=== PATIENT | male | born 1945 | race Hispanic/Latino ===

== ENCOUNTER → 2020-06-07 | Outpatient (CLI) | payer OTHER, MEDICARE | END | disposition home or self-care (01) | LOC: SHCH 11:30 | PROVIDERS: ATTEND Internal Medicine Cardiovascular Disease | DX: I50.42 Chronic combined systolic (congestive) and diastolic (congestive) heart failure (principal) | CPT/HCPCS: 93306; 93356 ==

== ENCOUNTER 2022-01-30 06:51 | Day surgery (SDC) | payer OTHER, MEDICARE ==
[2022-01-28 16:30] LABS: BASOPHILS % (AUTO) 0.5 % (0.0-5.0); EOSINOPHILS % (AUTO) 1.8 % (0.0-8.0); HEMATOCRIT 42.6 % (42-54); LYMPHOCYTES % (AUTO) 25.2 % (21.0-51.0); MEAN CORPUSCULAR HEMOGLOBIN 30.2 pg (27.0-33.0); MEAN CORPUSCULAR HGB CONC 33.6 g/dL (32.0-36.0); MEAN CORPUSCULAR VOLUME 89.9 fL (79-99); MONOCYTES % (AUTO) 7.3 % (3.0-13.0); NEUTROPHILS % (AUTO) 64.8 % (40.0-77.0); PLATELET COUNT (AUTO) 227 K/uL (130-400); RED BLOOD CELL COUNT(AUTO) 4.74 MIL/uL (4.50-6.20); RED CELL DISTRIBUTION WIDTH 12.8 % (11.0-15.5)
[2022-01-28 16:41] LABS: INR 1.04 (0.85-1.15); PROTHROMBIN TIME 11.3 SEC (9.6-11.6)
[2022-01-28 16:42] LABS: PARTIAL THROMBOPLASTIN TIME 33.3 SEC (26.3-35.5)
[2022-01-28 16:45] LABS: CREATININE 1.3 mg/dL (0.5-1.5); POTASSIUM 5.3 mmol/L (3.5-5.1)
[2022-01-29 09:10] VITALS: BP 152/76
[~2022-01-30] VITALS: Ht 162.6 cm; Wt 65.3 kg
[~2022-01-30 06:51] MED LIST: 0.9%NACL 1000ML 1,000 ML IV SCH; AEC81 PO; ATOR40TA69 PO; EMPA10TA PO; GLIP2.5T17 PO; HYDR12.54 PO; METF-446 PO; METO100T14 PO; SACU1TAB7 PO; SITA100T12 PO
[2022-01-30 07:15] VITALS: BP 146/72
[2022-01-30 07:32] LABS: CREATININE 1.4 mg/dL (0.5-1.5); POTASSIUM 4.5 mmol/L (3.5-5.1)
[2022-01-30] MEDS ORDERED: LIDOCAINE HCL 2% VISCOUS 15 ML UDCUP ONE (08:02)
[2022-01-30] MEDS ORDERED: FENTANYL CITRATE PF 50 MCG/1 ML 2ML VIAL ONE (08:03)
[2022-01-30] MEDS ORDERED: NALOXONE HCL 0.4 MG/1 ML ML ONE (08:03)
[2022-01-30] MEDS ORDERED: FLUMAZENIL 0.1MG/1ML 5ML VIAL IV ONE (08:03)
[2022-01-30] MEDS ORDERED: MIDAZOLAM HCL 1 MG/ML 2ML VIAL ONE (08:04)
== END 2022-01-30 11:15 | disposition home or self-care (01) ==
LOC: DAH 06:51
PROVIDERS: ATTEND Internal Medicine Cardiovascular Disease
DX: I48.91 Unspecified atrial fibrillation (principal); I37.1 Nonrheumatic pulmonary valve insufficiency; I25.5 Ischemic cardiomyopathy; I25.2 Old myocardial infarction; I11.0 Hypertensive heart disease with heart failure; I50.42 Chronic combined systolic (congestive) and diastolic (congestive) heart failure; E11.51 Type 2 diabetes mellitus with diabetic peripheral angiopathy without gangrene; E55.9 Vitamin D deficiency, unspecified; E78.5 Hyperlipidemia, unspecified; Z79.01 Long term (current) use of anticoagulants; Z79.82 Long term (current) use of aspirin; Z79.84 Long term (current) use of oral hypoglycemic drugs; Z79.899 Other long term (current) drug therapy; Z98.890 Other specified postprocedural states; Z86.73 Personal history of transient ischemic attack (TIA), and cerebral infarction without residual deficits; Z98.49 Cataract extraction status, unspecified eye; Z90.49 Acquired absence of other specified parts of digestive tract; Z82.49 Family history of ischemic heart disease and other diseases of the circulatory system
CPT/HCPCS: 80048 ×2; 85025; 85610; 85730; 36415 ×2; 93005; 82948; 93325; 93312; A4223 ×3; J3010; J7030; J2250; A4615; A4215; A4657; A7002; A4222; A4221; A4663; A4216; A4606; 96365; 99152; J2310; J3490

== ENCOUNTER → 2022-12-03 | Outpatient (CLI) | payer OTHER, MEDICARE ==
[~2022-12-03] MED LIST changes: -0.9%NACL 1000ML 1,000 ML IV SCH
[2022-12-03 12:22] LABS: BASOPHILS # (AUTO) 0.05 K/uL (0.00-0.20); BASOPHILS % (AUTO) 0.8 % (0.0-5.0); EOSINOPHILS # (AUTO) 0.14 K/uL (0.00-0.70); EOSINOPHILS % (AUTO) 2.2 % (0.0-8.0); HEMATOCRIT 42.4 % (42-54); IMMATURE GRANULOCYTE ABSOLUTE 0.02 K/uL (0-1); LYMPHOCYTES # (AUTO) 2.5 K/uL (1.0-4.8); LYMPHOCYTES % (AUTO) 39.6 % (21.0-51.0); MEAN CORPUSCULAR HEMOGLOBIN 29.6 pg (27.0-33.0); MEAN CORPUSCULAR HGB CONC 32.5 g/dL (32.0-36.0); MONOCYTES # (AUTO) 0.5 K/uL (0.1-1.0); NEUTROPHILS # (AUTO) 3.1 K/uL (1.8-7.7); NEUTROPHILS % (AUTO) 49.1 % (40.0-77.0); PLATELET COUNT (AUTO) 211 K/uL (130-400); RED BLOOD CELL COUNT(AUTO) 4.66 MIL/uL (4.50-6.20); RED CELL DISTRIBUTION WIDTH 13.8 % (11.0-15.5); WHITE BLOOD COUNT (AUTO) 6.3 K/uL (4.8-10.8)
[2022-12-03 12:40] LABS: ALBUMIN 3.7 g/dL (3.5-5.0); BILIRUBIN,TOTAL 2.1 mg/dL (0.2-1.0); CREATININE 1.5 mg/dL (0.5-1.5); POTASSIUM 4.1 mmol/L (3.5-5.1); TOTAL PROTEIN, SERUM 7.1 g/dL (6.0-8.3)
== END | disposition home or self-care (01) ==
LOC: LAB 08:29
PROVIDERS: ATTEND Internal Medicine Cardiovascular Disease
DX: I11.0 Hypertensive heart disease with heart failure (principal); I50.22 Chronic systolic (congestive) heart failure; I73.9 Peripheral vascular disease, unspecified
CPT/HCPCS: 36415; 80053; 80061; 85025

== ENCOUNTER 2022-12-28 05:57 | Day surgery (SDC) | payer OTHER, MEDICARE ==
[2022-12-25 15:42] LABS: BASOPHILS # (AUTO) 0.06 K/uL (0.00-0.20); BASOPHILS % (AUTO) 0.8 % (0.0-5.0); EOSINOPHILS # (AUTO) 0.16 K/uL (0.00-0.70); EOSINOPHILS % (AUTO) 2.2 % (0.0-8.0); HEMATOCRIT 42.4 % (42-54); IMMATURE GRANULOCYTE ABSOLUTE 0.02 K/uL (0-1); MEAN CORPUSCULAR HGB CONC 32.8 g/dL (32.0-36.0); MEAN CORPUSCULAR VOLUME 91.6 fL (79-99); MONOCYTES # (AUTO) 0.5 K/uL (0.1-1.0); MONOCYTES % (AUTO) 6.8 % (3.0-13.0); NEUTROPHILS # (AUTO) 4.7 K/uL (1.8-7.7); NEUTROPHILS % (AUTO) 62.9 % (40.0-77.0); PLATELET COUNT (AUTO) 200 K/uL (130-400); RED BLOOD CELL COUNT(AUTO) 4.63 MIL/uL (4.50-6.20); RED CELL DISTRIBUTION WIDTH 13.6 % (11.0-15.5); WHITE BLOOD COUNT (AUTO) 7.4 K/uL (4.8-10.8)
[2022-12-25 15:58] LABS: INR 0.98 (0.85-1.15); PROTHROMBIN TIME 11.4 SEC (9.6-11.6)
[2022-12-25 15:59] LABS: PARTIAL THROMBOPLASTIN TIME 30.7 SEC (26.3-35.5)
[2022-12-25 16:07] VITALS: BP 128/71; PULSE 56; RESP 18
[2022-12-25 16:16] LABS: POTASSIUM 4.6 mmol/L (3.5-5.1)
[2022-12-25 17:08] LABS: CREATININE 1.4 mg/dL (0.5-1.5)
[~2022-12-28] VITALS: Ht 165.1 cm; Wt 63.5 kg
[2022-12-28] VITALS (8 sets, daily range): BP systolic 107–141; BP diastolic 64–77; PULSE 60–68; RESP 14–21
[~2022-12-28 05:57] MED LIST changes: +ERGO500093 PO; +LEVO75CA5 PO; +METF-444 PO; -METF-446 PO; +SACU1TAB4 PO; -SACU1TAB7 PO
[2022-12-28] MEDS ORDERED: 0.9%NACL 1000ML 1,000 ML IV ONE (06:25)
[2022-12-28] MEDS ORDERED: CEFAZOLIN SODIUM 1 GM VIAL ONE (07:29)
[2022-12-28] MEDS ORDERED: MEPERIDINE-PF 25 MG/ML SYG ONE (07:29)
[2022-12-28] MEDS ORDERED: LIDOCAINE HCL 1% MDV 50ML VIAL ONE (07:29)
[2022-12-28] MEDS ORDERED: BUPIVACAINE/PF 0.25% 30ML VIAL IJ ONE (07:30)
[2022-12-28] MEDS ORDERED: MIDAZOLAM HCL 1 MG/ML 2ML VIAL ONE (07:30)
[2022-12-28] MEDS ORDERED: BACITRACIN 1 EACH PACKET TP ONE (08:38)
[2022-12-28] MEDS ORDERED: ACETAMINOPHEN 500 MG TABLET PO PRN (09:00)
[2022-12-28] MEDS ORDERED: ACETAMINOPHEN WITH CODEINE 1 TAB TAB PO PRN (09:00)
[2022-12-28] MEDS ORDERED: TRAM50TA4 PO (09:02)
== END 2022-12-28 12:10 | disposition home or self-care (01) ==
LOC: DAH 05:57
PROVIDERS: ATTEND Internal Medicine Cardiovascular Disease
DX: Z45.02 Encounter for adjustment and management of automatic implantable cardiac defibrillator (principal); I25.5 Ischemic cardiomyopathy; I49.5 Sick sinus syndrome; I11.0 Hypertensive heart disease with heart failure; I50.42 Chronic combined systolic (congestive) and diastolic (congestive) heart failure; I25.10 Atherosclerotic heart disease of native coronary artery without angina pectoris; I25.2 Old myocardial infarction; E78.5 Hyperlipidemia, unspecified; E11.51 Type 2 diabetes mellitus with diabetic peripheral angiopathy without gangrene; E11.59 Type 2 diabetes mellitus with other circulatory complications; Z79.01 Long term (current) use of anticoagulants; Z79.899 Other long term (current) drug therapy; Z98.890 Other specified postprocedural states; Z86.73 Personal history of transient ischemic attack (TIA), and cerebral infarction without residual deficits; Z79.84 Long term (current) use of oral hypoglycemic drugs; Z79.890 Hormone replacement therapy; Z79.82 Long term (current) use of aspirin; Z90.49 Acquired absence of other specified parts of digestive tract; Z98.49 Cataract extraction status, unspecified eye; Z82.49 Family history of ischemic heart disease and other diseases of the circulatory system
CPT/HCPCS: 80048; 85025; 85610; 85730; 36415; 93005; 33263; 82948 ×2; C1721; J0690; J7030; J3490 ×2; J2250; J2175; A4215; A6251; A4222; A4221; A4663; A4216; A6258; A4606; A4223 ×3; 99156; 99157

== ENCOUNTER → 2023-03-02 | Outpatient (CLI) | payer OTHER, MEDICARE ==
[~2023-03-02] MED LIST changes: +TRAM50TA4 PO
[2023-03-02 12:15] LABS: BASOPHILS # (AUTO) 0.04 K/uL (0.00-0.20); BASOPHILS % (AUTO) 0.6 % (0.0-5.0); EOSINOPHILS # (AUTO) 0.16 K/uL (0.00-0.70); EOSINOPHILS % (AUTO) 2.5 % (0.0-8.0); IMMATURE GRANULOCYTE ABSOLUTE 0.03 K/uL (0-1); LYMPHOCYTES # (AUTO) 2.4 K/uL (1.0-4.8); LYMPHOCYTES % (AUTO) 38.1 % (21.0-51.0); MEAN CORPUSCULAR HEMOGLOBIN 29.9 pg (27.0-33.0); MEAN CORPUSCULAR HGB CONC 32.5 g/dL (32.0-36.0); MEAN CORPUSCULAR VOLUME 91.9 fL (79-99); MONOCYTES # (AUTO) 0.5 K/uL (0.1-1.0); NEUTROPHILS # (AUTO) 3.2 K/uL (1.8-7.7); NEUTROPHILS % (AUTO) 50.3 % (40.0-77.0); PLATELET COUNT (AUTO) 205 K/uL (130-400); RED BLOOD CELL COUNT(AUTO) 4.79 MIL/uL (4.50-6.20); RED CELL DISTRIBUTION WIDTH 12.8 % (11.0-15.5); WHITE BLOOD COUNT (AUTO) 6.4 K/uL (4.8-10.8)
[2023-03-02 12:31] LABS: ALBUMIN 3.8 g/dL (3.5-5.0); BILIRUBIN,TOTAL 1.4 mg/dL (0.2-1.0); CREATININE 1.4 mg/dL (0.5-1.5); POTASSIUM 4.5 mmol/L (3.5-5.1); TOTAL PROTEIN, SERUM 7.4 g/dL (6.0-8.3)
== END | disposition home or self-care (01) ==
LOC: LAB 08:57
PROVIDERS: ATTEND Internal Medicine Cardiovascular Disease
DX: I73.9 Peripheral vascular disease, unspecified (principal); E11.9 Type 2 diabetes mellitus without complications; I25.2 Old myocardial infarction
CPT/HCPCS: 36415; 80053; 80061; 85025

== ENCOUNTER → 2023-05-19 | Outpatient (CLI) | payer OTHER, MEDICARE ==
[2023-05-19 12:53] LABS: CREATININE 1.4 mg/dL (0.5-1.5); MAGNESIUM 1.6 mg/dL (1.80-2.40); POTASSIUM 4.6 mmol/L (3.5-5.1)
== END | disposition home or self-care (01) ==
LOC: LAB 08:52
PROVIDERS: ATTEND Internal Medicine Cardiovascular Disease
DX: I50.42 Chronic combined systolic (congestive) and diastolic (congestive) heart failure (principal); Z95.810 Presence of automatic (implantable) cardiac defibrillator
CPT/HCPCS: 36415; 80048; 83735; 83880

== ENCOUNTER → 2023-07-13 | Outpatient (CLI) | payer OTHER, MEDICARE ==
[2023-07-13 12:10] LABS: BASOPHILS # (AUTO) 0.04 K/uL (0.00-0.20); BASOPHILS % (AUTO) 0.7 % (0.0-5.0); EOSINOPHILS # (AUTO) 0.19 K/uL (0.00-0.70); EOSINOPHILS % (AUTO) 3.4 % (0.0-8.0); HEMATOCRIT 41.7 % (42-54); IMMATURE GRANULOCYTE ABSOLUTE 0.01 K/uL (0-1); LYMPHOCYTES # (AUTO) 1.9 K/uL (1.0-4.8); MEAN CORPUSCULAR HEMOGLOBIN 29.7 pg (27.0-33.0); MEAN CORPUSCULAR HGB CONC 33.1 g/dL (32.0-36.0); MEAN CORPUSCULAR VOLUME 89.7 fL (79-99); MONOCYTES # (AUTO) 0.4 K/uL (0.1-1.0); MONOCYTES % (AUTO) 7.8 % (3.0-13.0); NEUTROPHILS # (AUTO) 3.1 K/uL (1.8-7.7); NEUTROPHILS % (AUTO) 53.9 % (40.0-77.0); PLATELET COUNT (AUTO) 210 K/uL (130-400); RED BLOOD CELL COUNT(AUTO) 4.65 MIL/uL (4.50-6.20); RED CELL DISTRIBUTION WIDTH 13.3 % (11.0-15.5); WHITE BLOOD COUNT (AUTO) 5.7 K/uL (4.8-10.8)
== END | disposition home or self-care (01) ==
LOC: LAB 09:12
PROVIDERS: ATTEND Internal Medicine Cardiovascular Disease
DX: I13.0 Hypertensive heart and chronic kidney disease with heart failure and stage 1 through stage 4 chronic kidney disease, or unspecified chronic kidney disease (principal); I50.22 Chronic systolic (congestive) heart failure; N18.9 Chronic kidney disease, unspecified; I25.810 Atherosclerosis of coronary artery bypass graft(s) without angina pectoris; I51.3 Intracardiac thrombosis, not elsewhere classified; E78.5 Hyperlipidemia, unspecified; Z79.899 Other long term (current) drug therapy
CPT/HCPCS: 36415; 82306; 85025

== ENCOUNTER → 2023-08-10 | Outpatient (CLI) | payer OTHER, MEDICARE ==
[2023-08-10 12:21] LABS: CREATININE 1.5 mg/dL (0.5-1.3); POTASSIUM 4.8 mmol/L (3.5-5.1)
== END | disposition home or self-care (01) ==
LOC: LAB 08:39
PROVIDERS: ATTEND Internal Medicine Cardiovascular Disease
DX: I50.22 Chronic systolic (congestive) heart failure (principal); I25.2 Old myocardial infarction
CPT/HCPCS: 36415; 80048; 83880

== ENCOUNTER → 2023-11-24 | Outpatient (CLI) | payer OTHER, MEDICARE ==
[2023-11-24 12:23] LABS: BASOPHILS # (AUTO) 0.05 K/uL (0.00-0.20); BASOPHILS % (AUTO) 0.6 % (0.0-5.0); EOSINOPHILS # (AUTO) 0.16 K/uL (0.00-0.70); EOSINOPHILS % (AUTO) 1.9 % (0.0-8.0); IMMATURE GRANULOCYTE ABSOLUTE 0.03 K/uL (0-1); LYMPHOCYTES # (AUTO) 2.5 K/uL (1.0-4.8); LYMPHOCYTES % (AUTO) 29.6 % (21.0-51.0); MEAN CORPUSCULAR HEMOGLOBIN 30.6 pg (27.0-33.0); MEAN CORPUSCULAR HGB CONC 33.2 g/dL (32.0-36.0); MEAN CORPUSCULAR VOLUME 92.2 fL (79-99); MONOCYTES # (AUTO) 0.6 K/uL (0.1-1.0); MONOCYTES % (AUTO) 7.5 % (3.0-13.0); NEUTROPHILS # (AUTO) 5.1 K/uL (1.8-7.7); PLATELET COUNT (AUTO) 331 K/uL (130-400); RED BLOOD CELL COUNT(AUTO) 4.77 MIL/uL (4.50-6.20); RED CELL DISTRIBUTION WIDTH 13.5 % (11.0-15.5); WHITE BLOOD COUNT (AUTO) 8.5 K/uL (4.8-10.8)
[2023-11-24 12:41] LABS: BILIRUBIN,TOTAL 1.4 mg/dL (0.2-1.0); CREATININE 1.6 mg/dL (0.5-1.3); POTASSIUM 4.6 mmol/L (3.5-5.1); TOTAL PROTEIN, SERUM 7.9 g/dL (6.0-8.3)
== END | disposition home or self-care (01) ==
LOC: LAB 08:14
PROVIDERS: ATTEND Internal Medicine Cardiovascular Disease
DX: I50.22 Chronic systolic (congestive) heart failure (principal); I73.9 Peripheral vascular disease, unspecified
CPT/HCPCS: 36415; 80053; 80061; 85025

== ENCOUNTER → 2024-03-30 | Outpatient (CLI) | payer OTHER, MEDICARE ==
[2024-03-30 12:12] LABS: BASOPHILS # (AUTO) 0.04 K/uL (0.00-0.20); BASOPHILS % (AUTO) 0.6 % (0.0-5.0); EOSINOPHILS # (AUTO) 0.18 K/uL (0.00-0.70); EOSINOPHILS % (AUTO) 2.6 % (0.0-8.0); IMMATURE GRANULOCYTE ABSOLUTE 0.03 K/uL (0-1); LYMPHOCYTES % (AUTO) 29.7 % (21.0-51.0); MEAN CORPUSCULAR HEMOGLOBIN 30.8 pg (27.0-33.0); MEAN CORPUSCULAR HGB CONC 32.8 g/dL (32.0-36.0); MEAN CORPUSCULAR VOLUME 93.9 fL (79-99); MONOCYTES # (AUTO) 0.5 K/uL (0.1-1.0); MONOCYTES % (AUTO) 6.6 % (3.0-13.0); NEUTROPHILS # (AUTO) 4.1 K/uL (1.8-7.7); NEUTROPHILS % (AUTO) 60.1 % (40.0-77.0); PLATELET COUNT (AUTO) 185 K/uL (130-400); RED BLOOD CELL COUNT(AUTO) 4.58 MIL/uL (4.50-6.20); RED CELL DISTRIBUTION WIDTH 13.4 % (11.0-15.5); WHITE BLOOD COUNT (AUTO) 6.8 K/uL (4.8-10.8)
[2024-03-30 12:23] LABS: ALBUMIN 3.8 g/dL (3.5-5.0); BILIRUBIN,TOTAL 0.8 mg/dL (0.2-1.0); CREATININE 1.8 mg/dL (0.5-1.3); POTASSIUM 5.9 mmol/L (3.5-5.1); TOTAL PROTEIN, SERUM 7.1 g/dL (6.0-8.3)
== END | disposition home or self-care (01) ==
LOC: LAB 08:44
PROVIDERS: ATTEND Internal Medicine Cardiovascular Disease
DX: I50.22 Chronic systolic (congestive) heart failure (principal); I73.9 Peripheral vascular disease, unspecified
CPT/HCPCS: 36415; 80053; 80061; 85025

== ENCOUNTER → 2024-05-13 | Outpatient (CLI) | payer OTHER, MEDICARE ==
[~2024-05-13] MED LIST changes: +SACU1TAB PO; -SACU1TAB4 PO
== END | disposition home or self-care (01) ==
LOC: SHCH 10:46
PROVIDERS: ATTEND Internal Medicine Cardiovascular Disease
DX: I25.2 Old myocardial infarction (principal); I50.42 Chronic combined systolic (congestive) and diastolic (congestive) heart failure
CPT/HCPCS: 93306

== ENCOUNTER 2024-12-07 07:52 | Day surgery (SDC) | payer OTHER, MEDICARE ==
[~2024-12-07] VITALS: Ht 162.6 cm; Wt 61.2 kg
[2024-12-07] VITALS (12 sets, daily range): BP systolic 110–147; BP diastolic 64–91; PULSE 35–76; RESP 15–18; TEMP 97.1–97.8
[~2024-12-07 07:52] MED LIST changes: -HYDR12.54 PO; -LEVO75CA5 PO; +LEVO88TA7 PO; -SACU1TAB PO; +SACU1TAB4 PO; -TRAM50TA4 PO
[2024-12-07] MEDS: 0.9%NACL 1000ML 1,000 ML IV ONE (10:18)
[2024-12-07] MEDS ORDERED: LIDOCAINE HCL 1% 20 ML VIAL ONE (12:25)
--- NOTE | 2024-12-07 13:54 | NUR ---
BOTH PT AND SPOUSE GIVEN VERBAL AND WRITTEN DISCHARGE INSTRUCTIONS. IV REMOVED SITE ASYMPTOMATIC. PT TAKEN OUT VIA WHEELCHAIR DAUGHTER DRIVING
== END 2024-12-07 13:55 | disposition home or self-care (01) ==
LOC: DAH 07:52
PROVIDERS: ATTEND Internal Medicine
DX: D50.9 Iron deficiency anemia, unspecified (principal); D12.0 Benign neoplasm of cecum; K29.50 Unspecified chronic gastritis without bleeding; K63.5 Polyp of colon; K26.9 Duodenal ulcer, unspecified as acute or chronic, without hemorrhage or perforation; I25.10 Atherosclerotic heart disease of native coronary artery without angina pectoris; I11.0 Hypertensive heart disease with heart failure; I50.22 Chronic systolic (congestive) heart failure; E78.5 Hyperlipidemia, unspecified; E11.9 Type 2 diabetes mellitus without complications; Z86.73 Personal history of transient ischemic attack (TIA), and cerebral infarction without residual deficits; Z80.0 Family history of malignant neoplasm of digestive organs; Z79.899 Other long term (current) drug therapy
CPT/HCPCS: 82948 ×2; 43239; 45380; 45385; J7030 ×2; J2704; A4620; A4657; A7002; J3490

== ENCOUNTER 2025-03-29 10:06 | Observation (INO) | payer OTHER, MEDICARE ==
[~2025-03-29] VITALS: Ht 162.6 cm; Wt 60.4 kg
--- NOTE | 2025-03-29 10:47 | ERN ---
ED Note History of Present Illness Stated Complaint: PAIN TO NEHA LEG AND HIP PAIN Chief Complaint: Hip Pain/Injury Time Seen by MD: 10:16 Time Seen by Midlevel: 10:20 Dictation: 79-YEAR-OLD MALE WITH A HISTORY OF CHOLESTEROL AND HYPERTENSION COMING IN FOR RIGHT HIP PAIN AND RIGHT LEG PAIN ONSET WEDNESDAY. PATIENT STATES HE SUFFERED A GROUND LEVEL FALL AT NIGHT WHEN HE TRIPPED OVER AN OBJECT. DENIES STRIKING IN HIS HEAD. DENIES ANY BLOOD THINNERS, NO LOC. Allergies: Coded Allergies: No Known Drug Allergies (Verified Allergy, Unknown, 01/29/22) Home Meds Reported Medications Sacubitril/Valsartan (Entresto 97 mg-103 mg Tablet) 97 Mg-103 Mg Tablet, 1 EACH PO BID, TAB 12/06/24 Levothyroxine Sodium (Levothyroxine Sodium) 88 Mcg Tablet, 88 MCG PO ACBKFST, TAB 12/06/24 Ergocalciferol (Vitamin D2) (Vitamin D2) 1,250 Mcg Capsule, 1250 MCG PO MONTHLY, CAP 12/25/22 Metformin HCl (Metformin HCl) 500 Mg Tablet, 5000 MG PO BID, TAB 12/25/22 Aspirin (ASPIRIN 81 MG ECTAB) 81 Mg Ectab, 81 MG PO HS, TAB.EC 01/29/22 Atorvastatin Calcium (LIPITOR) 40 Mg Tablet, 40 MG PO HS, TAB 01/29/22 Glipizide (Glipizide Xl) 2.5 Mg Tab.er.24, 2.5 MG PO HS 01/29/22 Metoprolol Tartrate (Metoprolol Tartrate) 100 Mg Tablet, 100 MG PO BID, TAB 01/29/22 Empagliflozin (Jardiance) 10 Mg Tablet, 10 MG PO DAILY, TAB 01/29/22 Sitagliptin Phosphate (Januvia) 100 Mg Tablet, 100 MG PO DAILY, TAB 01/29/22 Past Medical History Past Medical History: CVA, Diabetes-Type II, High Cholesterol, Hypertension, CT Surgical History: Pacer/AICD Review of System Dictation Constitutional: Negative for fever,chills, and weight loss Eyes: Negative for injury, pain,redness, and discharge ENT: Negative for injury,pain or swelling Cardiovascular: Negative for chest pain, palpitations, and edema Respiratory: Negative for shortness of breath, cough, and wheezing, Abdomen/GI: Negative for abdominal pain, nausea, vomiting, diarrhea, and constipation Back: Negative for injury and pain : Negative for injury, bleeding and discharge MS/Extremity: Negative for injury and deformity, right hip pain Skin: Negative for rash, and discoloration Neuro: Negative for headache, weakness, numbness, tingling, and seizure Psych: Negative for suicide ideation, homicidal ideation, and hallucinations Review of Systems: was completed Initial Vital Sign VS Vital Signs Date Time Temp Pulse Resp B/P (MAP) Pulse Ox O2 Delivery O2 Flow Rate FiO2 03/29/25 10:07 97.5 83 18 148/86 98 Room Air 03/29/25 10:23 0 21 Physical Exam Dictation General: awake, alert, NAD Head/Face: Normocephalic, atraumatic Eyes: PERRL, EOMI, vision at baseline ENT: oral cavity clear, TMs clear, no signs of infection Neck: Trachea midline, supple, no nuchal rigidity Cardiovascular: RRR, normal S1/S2, No MRGs, no JVD Respiratory: CTAB, no respiratory distress, No rales or wheezes Abdomen: Soft, non-tender, non-distended, normal bowel sounds, no guarding or rebound. Skin: Warm, dry, normal turgor, no rash MS/Extremity: Pulses equal, no cyanosis, neurovascular intact, FROM, pain on palpation to the right hip area Neuro: COAx4, GCS 15, strength 5/5, CN 2-12 intact, normal cerebellar exam, normal gait, Psych: Normal behavior, mood, and affect normal Results (Laboratory/Radiology) Laboratory/Radiology Laboratory Tests Test 03/29/25 13:21 03/29/25 15:00 White Blood Count 8.7 K/uL (4.8-10.8) Red Blood Count 4.02 MIL/uL (4.50-6.20) L Hemoglobin 9.8 g/dL (14.0-18.0) L Hematocrit 31.5 % (42-54) L Mean Corpuscular Volume 78.4 fL (79-99) L Mean Corpuscular Hemoglobin 24.4 pg (27.0-33.0) L Mean Corpuscular Hemoglobin Concent 31.1 g/dL (32.0-36.0) L Red Cell Distribution Width 17.2 % (11.0-15.5) H Platelet Count 199 K/uL (130-400) Mean Platelet Volume 9.8 fL (7.5-10.5) Immature Granulocyte % (Auto) 0.3 % (0-1) Neutrophils (%) (Auto) 77.2 % (40.0-77.0) H Lymphocytes (%) (Auto) 12.8 % (21.0-51.0) L Monocytes (%) (Auto) 6.7 % (3.0-13.0) Eosinophils (%) (Auto) 2.4 % (0.0-8.0) Basophils (%) (Auto) 0.6 % (0.0-5.0) Neutrophils # (Auto) 6.7 K/uL (1.8-7.7) Lymphocytes # (Auto) 1.1 K/uL (1.0-4.8) Monocytes # (Auto) 0.6 K/uL (0.1-1.0) Eosinophils # (Auto) 0.21 K/uL (0.00-0.70) Basophils # (Auto) 0.05 K/uL (0.00-0.20) Absolute Immature Granulocyte (auto 0.03 K/uL (0-1) Nucleated Red Blood Cells 0.0 % (0.0-0.19) Red Blood Cell Morphology See comments Sodium Level 137 mmol/L (136-145) Potassium Level 4.4 mmol/L (3.5-5.1) Chloride Level 101 mmol/L (101-111) Carbon Dioxide Level 25 mmol/L (21-32) Blood Urea Nitrogen 30 mg/dL (7-18) H Creatinine 1.3 mg/dL (0.5-1.3) Glomerular Filtration Rate Calc 55 mL/min (>90) Random Glucose 157 mg/dL (70-105) H Total Calcium 9.0 mg/dL (8.5-10.1) Urine Color LIGHT-YELLOW (YELLOW) Urine Appearance CLEAR (CLEAR) Urine pH 5.0 (5.0-8.0) Urine Specific [place] 1.014 (1.001-1.031) Urine Protein NEGATIVE mg/dL (NEGATIVE) Urine Glucose (UA) >=1000 mg/dL (NEGATIVE) H Urine Ketones NEGATIVE mg/dL (NEGATIVE) Urine Occult Blood +- (TRACE) (NEGATIVE) H Urine Nitrate NEGATIVE (NEGATIVE) Urine Bilirubin NEGATIVE mg/dL (NEGATIVE) Urine Urobilinogen 0.2 mg/dL (0.2-1.0) Urine Leukocyte Esterase 25 Bon[place]/uL (NEGATIVE) H Urine RBC 2-5 /HPF (0-1) H Urine WBC 2-5 /HPF (0-1) H Urine Squamous Epithelial Cells RARE /HPF (0-2) Urine Bacteria None /HPF (None Seen) Labs Reviewed?: Yes X-RAY Comment: [facility] [facility] [address] [place] [address] IMAGING REPORT Signed PATIENT: JUAN CARLOS MILES MR#: [id number] : 1945 SEX: M AGE: 79 LOCATION: [facility] ORDER 43 STATUS: REG ER REPORT#: [id number] SERVICE 104 REASON: RIGHT HIP PAIN/FALL ORDERING PHYSICIAN: NAOMI MILLS CNP PROCEDURE: PELVIS - PELVIS 1-2VWS STUDY CR pelvis, 1 view. HISTORY Right hip pain following a fall. TECHNIQUE Single frontal radiograph of the pelvis. COMPARISON None provided. FINDINGS BONES No acute displaced fracture or aggressive osseous lesion is identified involving the pelvis or visualized proximal femora. However, there is a subtle cortical discontinuity at the left superior pubic ramus, suspicious for a nondisplaced hairline fracture. JOINTS No hip joint dislocation is seen. There is moderate degenerative osteoarthritis of the right hip joint and mild degenerative osteoarthritis of the left hip joint, with joint space narrowing and osteophytosis corresponding to side. SOFT TISSUES No focal soft tissue swelling, gas, or soft tissue mass is identified. IMPRESSION * Subtle cortical irregularity at the left superior pubic ramus suspicious for a nondisplaced hairline fracture; correlate with point tenderness. CT scan of the bony pelvis would be useful for more complete evaluation. 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 * No hip joint dislocation. /[place] DICTATED BY: LIZZY SMITH Jr., MD DATE: 03/29/25 1321 ELECTRONICALLY SIGNED BY: LIZZY SMITH Jr., MD [address] [place] [address] IMAGING REPORT Signed PATIENT: JUAN CARLOS MILES MR#: [id number] : 1945 SEX: M AGE: 79 LOCATION: [facility] ORDER [id number] STATUS: REG ER [facility] REPORT#: [id number] SERVICE 1043 REASON: RIGHT HIP PAIN/FALL ORDERING PHYSICIAN: NAOMI MILLS CNP PROCEDURE: FEM RT 2 - FEMUR 2VW RIGHT STUDY CR right femur, 4 views. HISTORY Right hip pain following a fall. TECHNIQUE Multiplanar radiographs of the right femur. COMPARISON None provided. FINDINGS BONES No acute fracture or aggressive osseous lesion is identified. There are moderate degenerative changes of the right hip and knee joints, with joint space narrowing and osteophyte formation compatible with osteoarthritis. JOINTS No hip or knee joint dislocation is seen. Alignment of the right femur, hip, and knee is maintained. SOFT TISSUES No focal soft tissue swelling or soft tissue mass is identified. Vascular calcifications are present along the thigh, compatible with peripheral vascular atherosclerotic change. IMPRESSION * No acute fracture or dislocation of the right femur. 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 * Vascular calcifications in the thigh consistent with peripheral vascular atherosclerosis. /[place] DICTATED BY: LIZZY SMITH Jr., MD DATE: 03/29/251315 ELECTRONICALLY SIGNED BY: LIZZY SMITH Jr., MD DATE: 03/29/[address] Scan Comment: [facility] [address] [place], [place] [address] IMAGING REPORT Signed PATIENT: JUAN CARLOS MILES MR#: [id number] : 1945 SEX: M AGE: 79 LOCATION: [facility] ORDER 1202 STATUS: REG ER REPORT#: [id number] SERVICE 1201 REASON: right hip pain ORDERING PHYSICIAN: NAOMI MILLS CNP PROCEDURE: PELVIS WO - CT PELVIS W/O CONTRAST EXAM: CT Pelvis without IV contrast CLINICAL HISTORY: Right hip pain TECHNIQUE: Axial computed tomography images of the pelvis without intravenous contrast. CONTRAST: Without intravenous contrast. COMPARISON: None provided. FINDINGS: BOWEL LOOPS AND APPENDIX: Appendix could not be definitively identified. Few diverticula noted in the visualized colonic loops. PERITONEUM: No free fluid. No free air. Diffuse fat stranding seen in the right iliac fossa and pelvis. LYMPH NODES: No lymphadenopathy is evident. REPRODUCTIVE: Prostate is enlarged with a few small calcifications. VASCULATURE: Atherosclerotic changes in the visualized extent of the aorta and its branches. No evidence of abdominal aortic aneurysm. BONES: Fracture of the left superior pubic ramus close to the symphysis pubis, associated with a small hematoma around the fracture site. Rest of the pelvic bones are normal. Degenerative changes in the lumbosacral spine. Bilateral hip joints and visualized extent of femora appear normal. IMPRESSION: Fracture of the left superior pubic ramus close to the symphysis pubis. Diffuse fat stranding in the right iliac fossa and pelvis CT abdomen and pelvis is recommended for further evaluation. Prostatomegaly PSA correlation is recommended. /[place] DICTATED BY: LIZZY SMITH Jr., MD DATE: 03/29/25 135 ELECTRONICALLY SIGNED BY: LIZZY SMITH Jr., MD DATE: 03/29/25 1350 ED Course ED Course Orders Procedure Category Date Status Time Pelvis 1-2vws RAD 03/29/25 Resulted 10:43 Femur 2vw Right RAD 03/29/25 Resulted 10:43 Ct Pelvis W/O Contrast CT 03/29/25 Resulted 12:01 Cbc With Differential LAB 03/29/25 Complete 13:08 Basic Metabolic Panel LAB 03/29/25 Complete 13:08 Urinalysis Profile LAB 03/29/25 Complete 13:08 Fentanyl Citrate Pf PHA 03/29/25 Transmitted 0.05 Mg/Ml (Fentanyl 16:00 Vital Signs Date Time Temp Pulse Resp B/P (MAP) Pulse Ox O2 Delivery O2 Flow Rate FiO2 03/29/25 15:00 97.5 70 18 109/63 98 Room Air* 0 21 03/29/25 14:00 97.5 72 18 127/78 98 Room Air* 0 21 03/29/25 13:00 97.5 72 18 133/74 98 Room Air* 0 21 03/29/25 11:30 97.5 77 18 130/64 98 Room Air* 0 21 03/29/25 10:23 77 18 146/73 98 Room Air* 0 21 03/29/25 10:07 97.5 83 18 148/86 98 Room Air Medical Decision Making MDM MDM: 79-YEAR-OLD MALE WITH A HISTORY OF CHOLESTEROL AND HYPERTENSION COMING IN FOR RIGHT HIP PAIN AND RIGHT LEG PAIN ONSET WEDNESDAY. PATIENT STATES HE SUFFERED A GROUND LEVEL FALL AT NIGHT WHEN HE TRIPPED OVER AN OBJECT. DENIES STRIKING IN HIS HEAD. DENIES ANY BLOOD THINNERS, NO LOC.CBC shows no leukocytosis, hemoglobin shows microcytic anemia hemoglobin of 9 hematocrit of 31. No thrombocytopenia. Chemistry shows no electrolyte abnormality. Normal kidney f unction. UA shows no evidence of urinary tract infection. CT scan of the pelvis shows fracture of the left superior pubic ramus close to the symphysis pubis. Discussed findings with the patient and family member at bedside. Family member and patient are concerned as patient can not bear weight on the side of the leg stating that he can not even up to get food, shower or do any of his ADLs. Patient will be admitted for pain management, placement possibly PT. 1557 Spoke to [facility] for [facility]. Okay to admit. Differential diagnosis: Hip dislocation, hip fracture, femur fracture, hip contusion Rationale: Tests considered and ordered secondary to shared decision making include: labs, ECG and radiology Previous outside records reviewed: Old ER visits. Risk of complication and/or morbidity or mortality of patient management: None Medications-Per medication reconciliation Need for hospitalization: Patient does meet criteria for hospitalization. Need for emergency major/minor surgery: No There are no social concerns with this patient. Prescription drug management Prescriptions will include symptomatic care Patient's prior external medical records from other ER visits were reviewed by me as indicated. Prior testing and results from previous visits were reviewed. Prior tests were taken into account with medical decision making and resource utilization, independent historian/historians were used to obtain complete medical history. I independently interpreted the test that were performed, results were reviewed by me and considered findings on radiology if ordered. Medical management and examination interpretation discussions were had by me with other qualified healthcare professionals as indicated for the patient's care. DX & DISP Disposition: Inpatient Decision to Admit Date: Mar 29, 2025 Decision to Admit Time: 15:58 Departure Impression: Primary Impression: Fracture of superior ramus of left pubis Condition: Stable Referrals: EMERSON POOLE MD (PCP) I have reviewed the case, and I agree with, Diagnosis and Plan NAOMI MILLS CNP Mar 29, 2025 10:47
--- NOTE | 2025-03-29 12:17 | HMCIMG ---
STUDY CR right femur, 4 views. HISTORY Right hip pain following a fall. TECHNIQUE Multiplanar radiographs of the right femur. COMPARISON None provided. FINDINGS BONES No acute fracture or aggressive osseous lesion is identified. There are moderate degenerative changes of the right hip and knee joints, with joint space narrowing and osteophyte formation compatible with osteoarthritis. JOINTS No hip or knee joint dislocation is seen. Alignment of the right femur, hip, and knee is maintained. SOFT TISSUES No focal soft tissue swelling or soft tissue mass is identified. Vascular calcifications are present along the thigh, compatible with peripheral vascular atherosclerotic change. IMPRESSION * No acute fracture or dislocation of the right femur. 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 * Vascular calcifications in the thigh consistent with peripheral vascular atherosclerosis. /[place]
--- NOTE | 2025-03-29 12:21 | HMCIMG ---
STUDY CR pelvis, 1 view. HISTORY Right hip pain following a fall. TECHNIQUE Single frontal radiograph of the pelvis. COMPARISON None provided. FINDINGS BONES No acute displaced fracture or aggressive osseous lesion is identified involving the pelvis or visualized proximal femora. However, there is a subtle cortical discontinuity at the left superior pubic ramus, suspicious for a nondisplaced hairline fracture. JOINTS No hip joint dislocation is seen. There is moderate degenerative osteoarthritis of the right hip joint and mild degenerative osteoarthritis of the left hip joint, with joint space narrowing and osteophytosis corresponding to side. SOFT TISSUES No focal soft tissue swelling, gas, or soft tissue mass is identified. IMPRESSION * Subtle cortical irregularity at the left superior pubic ramus suspicious for a nondisplaced hairline fracture; correlate with point tenderness. CT scan of the bony pelvis would be useful for more complete evaluation. 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 * No hip joint dislocation. /[place]
--- NOTE | 2025-03-29 12:51 | HMCIMG ---
EXAM: CT Pelvis without IV contrast CLINICAL HISTORY: Right hip pain TECHNIQUE: Axial computed tomography images of the pelvis without intravenous contrast. CONTRAST: Without intravenous contrast. COMPARISON: None provided. FINDINGS: BOWEL LOOPS AND APPENDIX: Appendix could not be definitively identified. Few diverticula noted in the visualized colonic loops. PERITONEUM: No free fluid. No free air. Diffuse fat stranding seen in the right iliac fossa and pelvis. LYMPH NODES: No lymphadenopathy is evident. REPRODUCTIVE: Prostate is enlarged with a few small calcifications. VASCULATURE: Atherosclerotic changes in the visualized extent of the aorta and its branches. No evidence of abdominal aortic aneurysm. BONES: Fracture of the left superior pubic ramus close to the symphysis pubis, associated with a small hematoma around the fracture site. Rest of the pelvic bones are normal. Degenerative changes in the lumbosacral spine. Bilateral hip joints and visualized extent of femora appear normal. IMPRESSION: Fracture of the left superior pubic ramus close to the symphysis pubis. Diffuse fat stranding in the right iliac fossa and pelvis CT abdomen and pelvis is recommended for further evaluation. Prostatomegaly PSA correlation is recommended. /[place]
[2025-03-29 13:32] LABS: IMMATURE GRANULOCYTE ABSOLUTE 0.03 K/uL (0-1); NUCLEATED RED BLOOD CELLS 0.0 % (0.0-0.19); PLATELET COUNT (AUTO) 199 K/uL (130-400); RED BLOOD CELL COUNT(AUTO) 4.02 MIL/uL (4.50-6.20); RED CELL DISTRIBUTION WIDTH 17.2 % (11.0-15.5); WHITE BLOOD COUNT (AUTO) 8.7 K/uL (4.8-10.8)
[2025-03-29 13:38] LABS: CREATININE 1.3 mg/dL (0.5-1.3); GLOMERULAR FILTR. RATE CALC 55.0 mL/min (>90); GLUCOSE,RANDOM 157.0 mg/dL (70-105); SODIUM SERUM 137.0 mmol/L (136-145); UREA NITROGEN, BLOOD 30.0 mg/dL (7-18)
[2025-03-29 15:17] LABS: APPEARANCE,URINE CLEAR (CLEAR); GLUCOSE, URINE (UA) >=1000 mg/dL (NEGATIVE); LEUKOCYTE ESTERASE ,URINE 25 Leu/uL (NEGATIVE); NITRATE,URINE NEGATIVE (NEGATIVE); OCCULT BLOOD,URINE +- (TRACE) (NEGATIVE)
[2025-03-29 15:18] LABS: ADD UA MICROSCOPIC YES
[2025-03-29 15:19] LABS: SQUAMOUS EPITHELIAL CELL,UR RARE /HPF (0-2)
--- NOTE | 2025-03-29 16:34 | EKG ---
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
[2025-03-29] MEDS ORDERED: MAG/ALUM/SIMETH 30 ML UDCUP PO PRN (17:00)
[2025-03-29] MEDS ORDERED: BENZOCAINE/MENTH/CETYLPYRD CL 1 EACH LOZENGE MM PRN (17:00)
[2025-03-29] MEDS ORDERED: LACTULOSE 20 GM/30 ML UDCUP PO PRN (17:00)
[2025-03-29] MEDS ORDERED: guaiFENesin-DM 200/20MG 10ML PO PRN (17:00)
[2025-03-29] MEDS ORDERED: NITROGLYCERIN 0.4 MG SL TAB SL PRN (17:00)
[2025-03-29] MEDS ORDERED: ARTIFICAL TEARS SOL 15 ML OP PRN (17:00)
[2025-03-29] MEDS ORDERED: LOPERAMIDE HCL 2 MG CAP PO PRN (17:00)
--- NOTE | 2025-03-29 19:24 | NUR ---
PT CARE ASSUMED AT THIS TIME
--- NOTE | 2025-03-29 20:06 | HP ---
[facility] HISTORY & PHYSICAL Date Patient Seen: Mar 29, 2025 Time of Visit: 20:04 Supervising Physician: Dr. Keyshawn Crowe Primary Care Physician: Dr Jose Bashir Outpatient Specialists: [ ] Inpatient Consults: [ ] PROBLEM LIST: Ground level fall, without loss of consciousness, POA Acute pain, left hip, secondary to fracture, POA Fracture, left superior pubic ramus, POA Hypertension, POA DM type 2, POA Hyperlipidemia, POA Hypothyroidism, POA Prostatomegaly, seen on CT of the pelvis , POA History of CVA and [place], pacemaker PLAN: Admit to medical-surgical floor with telemetry VS per unit protocol Multimodal pain relief Bilateral SCDs Keep SBP less than 160 P.r.n. hydralazine labetalol Keep serum glucose less than 150 Heart healthy diet Complete bedrest for now Monitor temperature curve Treat fever aggressively Incentive spirometry DuoNeb as needed for shortness of breaths Watch out for delirium Limit sedation CBC, CMP, magnesium level daily HPI: 79-year-old male with past medical history of hypertension, DM type 2, hyperlipidemia, hypothyroidism, CVA, previous [place], pacemaker who presented to ED via private vehicle with complaint of worsening left hip pain and found to have fracture to left superior pubic ramus following ground level fall last Wednesday. Patient was seen and examined in ED with present at bedside. Patient is Tanzanian-speaking only however bedside nurses able to translate during evaluation. Apparently patient in the fall last NSAID that he landed on his right side. Today he developed worsening hip pain, family then decided to bring him to ED for further medical evaluation. In ED CT of the pelvis was done and showed fracture of the left superior pubic ramus close to the symphysis pubis, with associated small hematoma around frac ture site. There is also diffuse fat stranding of the right iliac fossa and pelvis, there is also prostatomegaly. His CBC unrevealing for any acute infection however there is normocytic anemia, his chemistry did not reveal any electrolyte or kidney dysfunction. At present patient is currently hemodynamically stable, on room air with appropriate oxygen saturation, denies any headache, chest pain, confusion, shortness of breath, cough, abdominal pain, fever, or flu-like symptoms. He only complains of left hip pain worse with movement. Patient denies any smoking, alcohol intake, or illicit drug use. PAST MEDICAL HX: see above PAST SURGICAL HX: noncontributory SOCIAL HISTORY: No tobacco, ETOH, or illicit drug use Coded Allergies: No Known Drug Allergies (Verified Allergy, Unknown, 01/29/22) REVIEW OF SYSTEMS: 12 point ROS reviewed with patient. Pertinent positives mentioned above. Otherwise negative. PHYSICAL EXAM: GENERAL: alert, weak, awake oriented x 3 HEENT: EOMI, Sclera non icteric, moist mucosa NECK: Supple, no JVD, trachea midline LUNGS: Clear breath sounds bilaterally. No wheezes HEART: Regular rate and rhythm. Normal S1 and S2, without murmurs ABD: Abdomen soft, nontender. Bowel sounds present EXT: No clubbing cyanosis or edema, tenderness to left hip NEURO: Alert and oriented to person, follows commands Vital Signs (last 8hr) Date Time Temp Pulse Resp B/P (MAP) Pulse Ox O2 Delivery O2 Flow Rate FiO2 03/29/25 19:49 97.5 73 16 116/67 98 Room Air* 0 21 03/29/25 18:00 97.5 70 18 106/72 98 Room Air* 0 21 03/29/25 17:05 97.5 70 18 104/65 98 Room Air* 0 21 03/29/25 16:00 97.5 70 18 104/68 98 Room Air* 0 21 03/29/25 15:00 97.5 70 18 109/63 98 Room Air* 0 21 03/29/25 14:00 97.5 72 18 127/78 98 Room Air* 0 21 03/29/25 13:00 97.5 72 18 133/74 98 Room Air* 0 21 LABS: Hematology Labs: Test 03/29/25 13:21 Range/Units White Blood Count 8.7 4.8-10.8 K/uL Red Blood Count 4.02 L 4.50-6.20 MIL/uL Hemoglobin 9.8 L 14.0-18.0 g/dL Hematocrit 31.5 L 42-54 % Mean Corpuscular Volume 78.4 L 79-99 fL Mean Corpuscular Hemoglobin 24.4 L 27.0-33.0 pg Mean Corpuscular Hemoglobin Concent 31.1 L 32.0-36.0 g/dL Red Cell Distribution Width 17.2 H 11.0-15.5 % Platelet Count 199 130-400 K/uL Mean Platelet Volume 9.8 7.5-10.5 fL Immature Granulocyte % (Auto) 0.3 0-1 % Neutrophils (%) (Auto) 77.2 H 40.0-77.0 % Lymphocytes (%) (Auto) 12.8 L 21.0-51.0 % Monocytes (%) (Auto) 6.7 3.0-13.0 % Eosinophils (%) (Auto) 2.4 0.0-8.0 % Basophils (%) (Auto) 0.6 0.0-5.0 % Neutrophils # (Auto) 6.7 1.8-7.7 K/uL Lymphocytes # (Auto) 1.1 1.0-4.8 K/uL Monocytes # (Auto) 0.6 0.1-1.0 K/uL Eosinophils # (Auto) 0.21 0.00-0.70 K/uL Basophils # (Auto) 0.05 0.00-0.20 K/uL Absolute Immature Granulocyte (auto 0.03 0-1 K/uL Nucleated Red Blood Cells 0.0 0.0-0.19 % Red Blood Cell Morphology See comments Chemistry Labs: Test 03/29/25 13:21 Range/Units Sodium Level 137 136-145 mmol/L Potassium Level 4.4 3.5-5.1 mmol/L Chloride Level 101 101-111 mmol/L Carbon Dioxide Level 25 21-32 mmol/L Blood Urea Nitrogen 30 H 7-18 mg/dL Creatinine 1.3 0.5-1.3 mg/dL Glomerular Filtration Rate Calc 55 >90 mL/min Random Glucose 157 H 70-105 mg/dL Total Calcium 9.0 8.5-10.1 mg/dL DIAGNOSTICS / RADIOLOGY RESULTS: STUDY CR right femur, 4 views. HISTORY Right hip pain following a fall. TECHNIQUE Multiplanar radiographs of the right femur. COMPARISON None provided. FINDINGS BONES No acute fracture or aggressive osseous lesion is identified. There are moderate degenerative changes of the right hip and knee joints, with joint space narrowing and osteophyte formation compatible with osteoarthritis. JOINTS No hip or knee joint dislocation is seen. Alignment of the right femur, hip, and knee is maintained. SOFT TISSUES No focal soft tissue swelling or soft tissue mass is identified. Vascular calcifications are present along the thigh, compatible with peripheral vascular atherosclerotic change. IMPRESSION * No acute fracture or dislocation of the right femur. 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 * Vascular calcifications in the thigh consistent with peripheral vascular atherosclerosis. STUDY CR pelvis, 1 view. HISTORY Right hip pain following a fall. TECHNIQUE Single frontal radiograph of the pelvis. COMPARISON None provided. FINDINGS BONES No acute displaced fracture or aggressive osseous lesion is identified involving the pelvis or visualized proximal femora. However, there is a subtle cortical discontinuity at the left superior pubic ramus, suspicious for a nondisplaced hairline fracture. JOINTS No hip joint dislocation is seen. There is moderate degenerative osteoarthritis of the right hip joint and mild degenerative osteoarthritis of the left hip joint, with joint space narrowing and osteophytosis corresponding to side. SOFT TISSUES No focal soft tissue swelling, gas, or soft tissue mass is identified. IMPRESSION * Subtle cortical irregularity at the left superior pubic ramus suspicious for a nondisplaced hairline fracture; correlate with point tenderness. CT scan of the bony pelvis would be useful for more complete evaluation. 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 * No hip joint dislocation. EXAM: CT Pelvis without IV contrast CLINICAL HISTORY: Right hip pain TECHNIQUE: Axial computed tomography images of the pelvis without intravenous contrast. CONTRAST: Without intravenous contrast. COMPARISON: None provided. FINDINGS: BOWEL LOOPS AND APPENDIX: Appendix could not be definitively identified. Few diverticula noted in the visualized colonic loops. PERITONEUM: No free fluid. No free air. Diffuse fat stranding seen in the right iliac fossa and pelvis. LYMPH NODES: No lymphadenopathy is evident. REPRODUCTIVE: Prostate is enlarged with a few small calcifications. VASCULATURE: Atherosclerotic changes in the visualized extent of the aorta and its branches. No evidence of abdominal aortic aneurysm. BONES: Fracture of the left superior pubic ramus close to the symphysis pubis, associated with a small hematoma around the fracture site. Rest of the pelvic bones are normal. Degenerative changes in the lumbosacral spine. Bilateral hip joints and visualized extent of femora appear normal. IMPRESSION: Fracture of the left superior pubic ramus close to the symphysis pubis. Diffuse fat stranding in the right iliac fossa and pelvis CT abdomen and pelvis is recommended for further evaluation. Prostatomegaly PSA correlation is recommended. PLAN NEURO: Minimize central acting medications as possible. Maintain fall precautions, adequate lighting during the day PULMONARY: Supplemental 02 as needed. Maintain aspiration precautions at all times CARDIOVASCULAR: Follow hemodynamics. Vital signs per facility protocol GI & NUTRITION: Continue with nutritional support. Continue stool softeners and laxatives as needed. KIDNEYS & ELECTROLYTES: Strict monitoring of intake, output and overall fluid balance. Avoid nephrotoxic medications to the extent possible. Medications to be dosed according to renal function. Monitor electrolytes and replace as needed ENDOCRINE: Maintain blood glucose between 100-180 at all times. Hypoglycemia protocol in place INFECTIOUS DISEASE: Trend temperature, WBC and procalcitonin level Follow cultures, deescalate antibiotics as soon as possible. Panculture if new onset fever ONCOLOGY/HEMATOLOGY/COAGULATION: Monitor for s/s of bleeding Monitor hemoglobin, coagulation studies as needed SKIN: Pressure ulcer prevention per facility protocol Specialty mattress ORTHO/REHAB: Continue PT/OT Prophylaxis: Continue GI and DVT prophylaxis Code Status: Full Resuscitation Disposition: TBD Supervising physician: FARZANEH Garcia AGACNP Mar 29, 2025 20:06
[2025-03-29] MEDS: FAMOTIDINE 20MG VIAL IV SCH (21:33)
--- NOTE | 2025-03-29 22:40 | NUR ---
REPORT GIVEN TO DILIA CROWLEY AT THIS TIME
[2025-03-29 23:00] VITALS: BP 134/94; PULSE 77; RESP 20; TEMP 97.5
[2025-03-30] MEDS ORDERED: DOCU100T PO (00:43)
[2025-03-30] MEDS ORDERED: FERR324T4 PO (00:43)
[2025-03-30] MEDS ORDERED: PANT40TA54 PO (00:43)
[2025-03-30 04:00] VITALS: BP 136/74; PULSE 86; RESP 24; TEMP 98.2
[2025-03-30 08:00] VITALS: O2SAT 94
[2025-03-30 08:18] VITALS: BP 136/70; PULSE 80; RESP 13; TEMP 98
--- NOTE | 2025-03-30 10:49 | NUR ---
dr mcacin informed of consult ans cleared for dc hm
--- NOTE | 2025-03-30 11:27 | PN ---
[facility] PROGRESS NOTE Date Patient Seen: Mar 30, 2025 Time of Visit: 11:16 Supervising Physician: [DR Lyn Primary Care Physician: Dr Jose Bashir Outpatient Specialists: [ ] Inpatient Consults: [ ] PROBLEM LIST: Ground level fall, without loss of consciousness, POA Acute pain, left hip, secondary to fracture, POA Fracture, left superior pubic ramus, POA Hypertension, POA DM type 2, POA Hyperlipidemia, POA Hypothyroidism, POA Prostatomegaly, seen on CT of the pelvis , POA History of CVA and [place], pacemaker INTERVAL HISTORY: 79-year-old male with past medical history of hypertension, DM type 2, hyperlipidemia, hypothyroidism, CVA, previous [place], pacemaker who presented to ED via private vehicle with complaint of worsening left hip pain and found to have fracture to left superior pubic ramus following ground level fall last Wednesday. Patient was seen and examined in ED with present at bedside. Patient is Indian-speaking only however bedside nurses able to translate during evaluation. Apparently patient in the fall last NSAID that he landed on his right side. Today he developed worsening hip pain, family then decided to bring him to ED for further medical evaluation. In ED CT of the pelvis was done and showed fracture of the left superior pubic ramus close to the symphysis pubis, with associated small hematoma around fracture site. There is also diffuse fat stranding of the right iliac fossa and pelvis, there is also prostatomegaly. His CBC unrevealing for any acute infection however there is normocytic anemia, his chemistry did not reveal any electrolyte or kidney dysfunction. Patient denies any smoking, alcohol intake, or illicit drug use. 03/30 - patient is seen and evaluated at the bedside. Patient is laying in bed resting quietly accompanied by his . Patient continues to complain of left hip pain with a minimal movement. Patient is awake alert and oriented x3. no acute changes reported overnight. Patient is hemodynamically stable at this time. Nursing reports she notified ortho and that Dr. Salcido cleared patient to DC home. We will have Physical therapy evaluate the patient for DC recommendations. Discussed discharge planning with both patient and as reports he is very weak and has difficulty ambulating high and now with a fracture and pain every wires. Offered patient SNF for rehab and will report they will see were physical therapy recommends before making final decision. Patient and his were both informed that if he decides to go home he will have to follow up with his PCP in order to have a home health for PT services arranged. Both verbalized understanding. Vital signs are stable. Labs are within normal limits. PLAN SUMMARY: Supplemental oxygen as needed Patient on room air Pain medication as needed PT evaluate and treat Dispo: Home versus SNF for rehab. REVIEW OF SYSTEMS: 12 point ROS reviewed with patient. Pertinent positives mentioned above. Otherwise negative. PHYSICAL EXAM: GENERAL: alert, weak, awake oriented x 3 HEENT: EOMI, Sclera non icteric, moist mucosa NECK: Supple, no JVD, trachea midline LUNGS: Clear breath sounds bilaterally. No wheezes HEART: Regular rate and rhythm. Normal S1 and S2, without murmurs ABD: Abdomen soft, nontender. Bowel sounds present EXT: No clubbing cyanosis or edema, tenderness to left hip NEURO: Alert and oriented to person, follows commands Vital Signs (last 8hr) Date Time Temp Pulse Resp B/P (MAP) Pulse Ox O2 Delivery O2 Flow Rate FiO2 03/30/25 08:18 98.1 80 13 136/70 93 Room Air 03/30/25 04:00 98.2 86 24 136/74 93 Room Air LABS: Hematology Labs: Test 03/29/25 13:21 Range/Units White Blood Count 8.7 4.8-10.8 K/uL Red Blood Count 4.02 L 4.50-6.20 MIL/uL Hemoglobin 9.8 L 14.0-18.0 g/dL Hematocrit 31.5 L 42-54 % Mean Corpuscular Volume 78.4 L 79-99 fL Mean Corpuscular Hemoglobin 24.4 L 27.0-33.0 pg Mean Corpuscular Hemoglobin Concent 31.1 L 32.0-36.0 g/dL Red Cell Distribution Width 17.2 H 11.0-15.5 % Platelet Count 199 130-400 K/uL Mean Platelet Volume 9.8 7.5-10.5 fL Immature Granulocyte % (Auto) 0.3 0-1 % Neutrophils (%) (Auto) 77.2 H 40.0-77.0 % Lymphocytes (%) (Auto) 12.8 L 21.0-51.0 % Monocytes (%) (Auto) 6.7 3.0-13.0 % Eosinophils (%) (Auto) 2.4 0.0-8.0 % Basophils (%) (Auto) 0.6 0.0-5.0 % Neutrophils # (Auto) 6.7 1.8-7.7 K/uL Lymphocytes # (Auto) 1.1 1.0-4.8 K/uL Monocytes # (Auto) 0.6 0.1-1.0 K/uL Eosinophils # (Auto) 0.21 0.00-0.70 K/uL Basophils # (Auto) 0.05 0.00-0.20 K/uL Absolute Immature Granulocyte (auto 0.03 0-1 K/uL Nucleated Red Blood Cells 0.0 0.0-0.19 % Red Blood Cell Morphology See comments Chemistry Labs: Test 03/30/25 10:28 03/29/25 13:21 Range/Units Whole Blood Glucose 141 H 70-110 MG/DL Sodium Level 137 136-145 mmol/L Potassium Level 4.4 3.5-5.1 mmol/L Chloride Level 101 101-111 mmol/L Carbon Dioxide Level 25 21-32 mmol/L Blood Urea Nitrogen 30 H 7-18 mg/dL Creatinine 1.3 0.5-1.3 mg/dL Glomerular Filtration Rate Calc 55 >90 mL/min Random Glucose 157 H 70-105 mg/dL Total Calcium 9.0 8.5-10.1 mg/dL DIAGNOSTICS / RADIOLOGY RESULTS: PATIENT: JUAN CARLOS MILES MR#: [id number] : 1945 SEX: M AGE: 79 LOCATION: [facility] ORDER [id number] STATUS: REG ER REPORT#: [id number] SERVICE 1201 REASON: right hip pain ORDERING PHYSICIAN: NAOMI MILLS CNP PROCEDURE: PELVIS WO - CT PELVIS W/O CONTRAST EXAM: CT Pelvis without IV contrast CLINICAL HISTORY: Right hip pain TECHNIQUE: Axial computed tomography images of the pelvis without intravenous contrast. CONTRAST: Without intravenous contrast. COMPARISON: None provided. FINDINGS: BOWEL LOOPS AND APPENDIX: Appendix could not be definitively identified. Few diverticula noted in the visualized colonic loops. PERITONEUM: No free fluid. No free air. Diffuse fat stranding seen in the right iliac fossa and pelvis. LYMPH NODES: No lymphadenopathy is evident. REPRODUCTIVE: Prostate is enlarged with a few small calcifications. VASCULATURE: Atherosclerotic changes in the visualized extent of the aorta and its branches. No evidence of abdominal aortic aneurysm. BONES: Fracture of the left superior pubic ramus close to the symphysis pubis, associated with a small hematoma around the fracture site. Rest of the pelvic bones are normal. Degenerative changes in the lumbosacral spine. Bilateral hip joints and visualized extent of femora appear normal. IMPRESSION: Fracture of the left superior pubic ramus close to the symphysis pubis. Diffuse fat stranding in the right iliac fossa and pelvis CT abdomen and pelvis is recommended for further evaluation. Prostatomegaly PSA correlation is recommended. /[facility] DICTATED BY: LIZZY SMITH Jr., MD DATE: 03/29/251349 ELECTRONICALLY SIGNED BY: LIZZY SMITH Jr., MD DATE: 03/29/251349 PLAN NEURO: Minimize central acting medications as possible. Maintain fall precautions, adequate lighting during the day PULMONARY: Supplemental 02 as needed. Maintain aspiration precautions at all times CARDIOVASCULAR: Follow hemodynamics. Vital signs per facility protocol GI & NUTRITION: Continue with nutritional support. Continue stool softeners and laxatives as needed. KIDNEYS & ELECTROLYTES: Strict monitoring of intake, output and overall fluid balance. Avoid nephrotoxic medications to the extent possible. Medications to be dosed according to renal function. Monitor electrolytes and replace as needed ENDOCRINE: Maintain blood glucose between 100-180 at all times. Hypoglycemia protocol in place INFECTIOUS DISEASE: Trend temperature, WBC and procalcitonin level Follow cultures, deescalate antibiotics as soon as possible. Panculture if new onset fever ONCOLOGY/HEMATOLOGY/COAGULATION: Monitor for s/s of bleeding Monitor hemoglobin, coagulation studies as needed SKIN: Pressure ulcer prevention per facility protocol Specialty mattress ORTHO/REHAB: Continue PT/OT Prophylaxis: Continue GI and DVT prophylaxis Code Status: Full Resuscitation Disposition: Home versus SNF CYNDI PUGA Mar 30, 2025 11:27
[2025-03-30 11:57] VITALS: BP 140/76; PULSE 87; RESP 14; TEMP 97.9
--- NOTE | 2025-03-30 12:00 | NUR ---
DCP:HOME Pt currently lives at home with his . pt has a walker that he uses to ambulate. Pt denies any home health or provider services. Pt states that he is able to complete ADLs independently. PCP is Dr Jose Bashir and uses [facility] for any RX needs. At DC pt will want to go home and family can assist with transportation.
--- NOTE | 2025-03-30 15:16 | DS ---
[facility] DISCHARGE SUMMARY Date Patient Seen: Mar 30, 2025 Time of Visit: 15:12 Supervising Physician: [Dr Delgado Primary Care Physician: Dr Jose Bashir Outpatient Specialists: [ ] Inpatient Consults: [ ] PROBLEM LIST: Ground level fall, without loss of consciousness, POA Acute pain, left hip, secondary to fracture, POA Fracture, left superior pubic ramus, POA Hypertension, POA DM type 2, POA Hyperlipidemia, POA Hypothyroidism, POA Prostatomegaly, seen on CT of the pelvis , POA History of CVA and [place], pacemaker HOSPITAL COURSE: HPI (per admitting provider) 79-year-old male with past medical history of hypertension, DM type 2, hyperlipidemia, hypothyroidism, CVA, previous [place], pacemaker who presented to ED via private vehicle with complaint of worsening left hip pain and found to have fracture to left superior pubic ramus following ground level fall last Wednesday. Patient was seen and examined in ED with present at bedside. Patient is Slovak-speaking only however bedside nurses able to translate during evaluation. Apparently patient in the fall last NSAID that he landed on his right side. Today he developed worsening hip pain, family then decided to bring him to ED for further medical evaluation. In ED CT of the pelvis was done and showed fracture of the left superior pubic ramus close to the symphysis pubis, with associated small hematoma around fracture site. There is also diffuse fat stranding of the right iliac fossa and pelvis, there is also prostatomegaly. His CBC unrevealing for any acute infection however there is normocytic anemia, his chemistry did not reveal any electrolyte or kidney dysfunction. Patient denies any smoking, alcohol intake, or illicit drug use. 03/30 - patient is seen and evaluated at the bedside. Patient is laying in bed resting quietly accompanied by his . Patient continues to complain of left hip pain with a minimal movement. Patient is awake alert and oriented x3. no acute changes reported overnight. Patient is hemodynamically stable at this time. Nursing reports she notified ortho and that Dr. Salcido cleared patient to DC home. We will have Physical therapy evaluate the patient for DC recommendations. Discussed discharge planning with both patient and as reports he is very weak and has difficulty ambulating high and now with a fracture and pain every wires. Offered patient SNF for rehab and will report they will see were physical therapy recommends before making final decision. Patient and his were both informed that if he decides to go home he will have to follow up with his PCP in order to have a home health for PT services arranged. Both verbalized understanding. Vital signs are stable. Labs are within normal limits. Pt was evaluated by PT and was found to be able to ambulate 50 ft with the use of a walker. Pt reports he has a walker at home already. Pt has been advised to follow up with PCP in 1-2 days to arrange home health for PT services. Vital signs are stable. Labs are WNL. Med rec has been completed. Education regarding current diagnosis has been provided to the patient. All questions have been answered. PT to be discharged home. 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 PCP notified of patients admission, hospital course and discharge. Continued Medications: Aspirin (Aspirin 81 Mg Ectab) 81 Mg Ectab 81 MG PO HS, TAB.EC Atorvastatin Calcium (Lipitor) 40 Mg Tablet 40 MG PO HS, TAB Docusate Sodium (Docusate Sodium) 100 Mg Tablet 1 TAB PO BID for 30 Days, #60 TAB 0 Refills Empagliflozin (Jardiance) 10 Mg Tablet 10 MG PO DAILY, TAB Ergocalciferol (Vitamin D2) (Vitamin D2) 1,250 Mcg Capsule 1250 MCG PO MONTHLY, CAP Ferrous Sulfate (Ferrous Sulfate) 324 Mg (65 Mg Iron) Tablet.dr 1 TAB PO DAILY for 30 Days, #30 TAB 0 Refills Glipizide (Glipizide Xl) 2.5 Mg Tab.er.24 2.5 MG PO HS Levothyroxine Sodium (Levothyroxine Sodium) 88 Mcg Tablet 88 MCG PO ACBKFST, TAB Metformin HCl (Metformin HCl) 500 Mg Tablet 5000 MG PO BID, TAB Metoprolol Tartrate (Metoprolol Tartrate) 100 Mg Tablet 100 MG PO BID, TAB Pantoprazole Sodium (Pantoprazole Sodium) 40 Mg Tablet.dr 40 MG PO BID, TAB Sacubitril/Valsartan (Entresto 97 mg-103 mg Tablet) 97 Mg-103 Mg Tablet 1 EACH PO BID, TAB Sitagliptin Phosphate (Januvia) 100 Mg Tablet 100 MG PO DAILY, TAB PHYSICAL EXAM: GENERAL: alert, weak, awake oriented x 3 HEENT: EOMI, Sclera non icteric, moist mucosa NECK: Supple, no JVD, trachea midline LUNGS: Clear breath sounds bilaterally. No wheezes HEART: Regular rate and rhythm. Normal S1 and S2, without murmurs ABD: Abdomen soft, nontender. Bowel sounds present EXT: No clubbing cyanosis or edema, tenderness to left hip NEURO: Alert and oriented to person, follows commands FOLLOW-UP: Follow-up with PCP in 2-3 days RECOMMENDATIONS: See Discharge Instructions This case was seen and discussed with my supervising physician. More than 30 minutes spent on discharge process, including evaluation of the patient, discussion with nursing staff, medication reconciliation and follow-up appointments ATTESTATION BY PHYSICIAN I attest that I reviewed and discussed the case with the Physician Primer Powder Blender Wet as well as agree with the Physician Primer Powder Blender Wet's findings, plans of care, and documentation above. Keyshawn Combs MD, ECTOR N FNP Mar 30, 2025 15:16
--- NOTE | 2025-03-30 16:35 | NUR ---
SL DC DRESSING TO REMOVAL SITE [facility] CATH INTACT DC INSTRUCTIONS GIVEN VERBAL UNDERSTANDING DC PAPER SIGNED AWAITING TRANSPORTATION
[2025-03-30 16:47] VITALS: BP 129/79; PULSE 89; RESP 14; TEMP 98.1
--- NOTE | 2025-03-30 17:13 | NUR ---
ESCORTED OFF UNIT VIA WC TO FRONT OF HOSPITAL DC HM COND STABLE
--- NOTE | 2025-03-31 01:53 | CONS ---
ORTHOPEDIC CONSULTATION CHIEF COMPLAINT: Left hip and groin pain. HISTORY OF PRESENT ILLNESS: This 79-year-old male states that he reached out to grab something and missed and lost his balance and fell first against a wall and then landed hard in a sitting position. When he tried to get up, he had severe pain in his hip and pelvis. Because he could not get up, the patient was eventually brought to [facility] where they diagnosed him as a pelvis pubic ramus fracture. The patient was admitted and I was called for consultation. PAST MEDICAL HISTORY: Positive for type 2 diabetes, hypertension, hyperlipidemia, hypothyroidism, CVA, previous MA with pacemaker. PHYSICAL EXAMINATION: VITAL SIGNS: The patient's temperature is 98.1 with a pulse of 80, respirations 32, blood pressure 136/70. GENERAL: A well-developed, adult male. Appearing stated age of 79 years. He is alert, pleasant, and cooperative during the exam. His is at the bedside. MUSCULOSKELETAL: His motor and sensory intact to the toes of his left foot with a palpable dorsal pedal pulse. He has pain in his groin on attempted range of motion of his hip on the left, the same soreness as I move his right, but not as severe. IMAGING STUDIES: On AP pelvis and left hip films, we can see a nondisplaced suprapubic ramus fracture. ASSESSMENT: Left pubic ramus fracture. PLAN: The patient is weightbearing as tolerated, left lower extremity with a walker. PT can eval and treat and he is ortho stable for discharge. TID: [id number] RECEIPT: [id number]
== END 2025-03-30 16:30 | disposition home or self-care (01) ==
LOC: EDH 10:06 → EDHIP 16:55 → UNDOADMOB 16:55 → INTOOBSV 16:55 → 4BH 22:56 → EDHIP 22:56 → 4BH 03-30 14:34 → EDHIP 03-30 14:34
PROVIDERS: ADMIT Internal Medicine Critical Care Medicine; ATTEND Internal Medicine Critical Care Medicine
DX: S32.592A Other specified fracture of left pubis, initial encounter for closed fracture (principal); E11.9 Type 2 diabetes mellitus without complications; I10 Essential (primary) hypertension; M16.0 Bilateral primary osteoarthritis of hip; E78.00 Pure hypercholesterolemia, unspecified; E03.9 Hypothyroidism, unspecified; I25.2 Old myocardial infarction; M17.11 Unilateral primary osteoarthritis, right knee; N40.0 Benign prostatic hyperplasia without lower urinary tract symptoms; D64.9 Anemia, unspecified; Z86.73 Personal history of transient ischemic attack (TIA), and cerebral infarction without residual deficits; Z79.899 Other long term (current) drug therapy; Z98.890 Other specified postprocedural states; W18.30XA Fall on same level, unspecified, initial encounter; Y93.89 Activity, other specified; Y92.89 Other specified places as the place of occurrence of the external cause; Y99.8 Other external cause status
CPT/HCPCS: 96374; 96375; 99285; 80048; 85025; 84153; 81001; 36415; 73552; 72170; 72192; 93005; 82948 ×2; 97161; 97116; 97530 ×2; J1308; J3010; G0378 ×2